=== PATIENT | male | born 1970 | race Caucasian/White ===

== ENCOUNTER 2017-08-21 02:48 | Emergency (ER) | payer MEDICARE ==
[~2017-08-21] VITALS: Ht 188 cm; Wt 104.3 kg
--- NOTE | 2017-08-21 03:38 | NUR ---
PT AMBULATORY TO ER BED 5. PT BIB SELF C/O HEADACHE X 6 HOURS; TOOK INDOMETHACIN 4 HOURS AGO. 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 VSS/RESP EVEN UNLABORED/NAD NOTED/SKIN WARM AND DRY/DENIES N-V-D/AOX4. AWAITING MD WELLS.
--- NOTE | 2017-08-21 03:45 | NUR ---
AT BEDSIDE FOR EVAL.
[2017-08-21] MEDS ORDERED: SUMATRIPTAN SUCCINATE 6 MG/0.5 ML VIAL SQ ONE ×2 (04:12→04:30)
--- NOTE | 2017-08-21 04:41 | NUR ---
MD AT BEDSIDE SPEAKING WITH THE PATIENT.
--- NOTE | 2017-08-21 04:55 | NUR ---
Patient discharged to home in stable condition. Written and verbal after care instructions given. Patient verbalizes understanding of instruction. Patient ambulatory with a steady gait.
[2017-08-21 04:56] VITALS: BP 145/87
== END 2017-08-21 05:07 | disposition home or self-care (01) ==
LOC: ER 02:50
DX: G44.009 Cluster headache syndrome, unspecified, not intractable (principal); F20.9 Schizophrenia, unspecified
CPT/HCPCS: A4606; J3030; Z7610